=== PATIENT | female | born 1995 | race Caucasian/White ===

== ENCOUNTER 2021-10-20 07:34 | Inpatient (IN) ==
[2021-10-20] MEDS ORDERED: OXYTOCIN 30 UNITS/500 ML BAG IV PRN (08:26)
[2021-10-20 08:46] LABS: Hematocrit (blood only) 36.4 % (37-47); Hemoglobin 12.5 g/dL (12.0-16.0); Mean Corpuscular Hemoglobin 31.3 pg (25-34); Mean Corpuscular Hgb Conc 34.3 g/dL (32-36); Mean Corpuscular Volume 91.2 fL (80-100); Platelet Count 241 K/uL (130-400); RDW Coefficient of Variation 13.3 % (11.5-14.5); RDW Standard Deviation 44.9 fL (36.4-46.3); Red Blood Count 3.99 M/uL (4.2-5.4); White Blood Count 9.96 K/uL (4.8-10.8)
--- NOTE | 2021-10-20 08:55 | History & Physical Report ---
Date of Service October 20, 2021 Assessment & Plan (1) Post-dates : Plan: Monitor for labor probable Cervidil Admission and Anticipated Discharge Date Admission Date: October 20, 2021 History of Present Illness Chief Complaint: induction of labor Primary Care Provider: Nito Eubanks MD 26 F P0000 at 40.3 weeks admitted for IOL for post dates. GBS is negative. Covid is negative. Allergies Allergy/AdvReac Type Severity Reaction Status Date / Time No Known Allergies Allergy Verified 06/26/19 01:01 Patient History Medical History Anemia No chronic diseases present Ovarian cyst Surgical History No significant past surgical history Social History Smoking Status: Former smoker Second Hand Exposure: Yes (Patient reports occasional); Do You Dip or Chew Tobacco: No; Tobacco Cessation Education Requested by Patient: No Hx Alcohol Use: No Hx Substance Use: No Preferred Language: Chadian Communication Ability: Effective Clinical Care Coordinator Required: No Beliefs That Will Affect Care: None marital status: Current Living Situation: Spouse Other Information That Helps Us Care for You: No Feels Safe at Home: Yes Safety Concerns: Feels Safe At This Time Assistive Devices: None OB History 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 Review of Systems All systems reviewed & are unremarkable except as noted in HPI & below Physical Exam Constitutional: WD/WN, vitals as above comfortable Eyes: PERRL, conjunctivae normal, anicteric sclerae Neck: trachea midline, no thyromegaly Respiratory: normal respiratory effort, lungs clear to auscultation Skin: no rashes, warm and dry Neurologic: patellar DTR's 2+ bilat, sensation intact Psychiatric: A+Ox3, euthymic affect Genitourinary: Manual OB Exam: + cervical dilation fingertip, + cervical effacement 50% and + station high OB Exam Monitor Tracing: + external FHT monitor used, + external uterine monitor used, + category I and + normal FHT variability cervix posterior/moderate consistency Results & Data ([place]) Vital Signs (Past 12 Hours) Vital Signs Temp Pulse Resp BP 10/20/21 08:48 102 H 164/105 H 10/20/21 08:34 97 H 146/101 H 10/20/21 08:33 106 H 136/100 10/20/21 08:17 100 H 144/103 H 10/20/21 08:03 93 H 138/99 10/20/21 07:53 105 H 147/103 H 10/20/21 07:45 99 H 161/103 H 10/20/21 07:24 37.1 C 99 H 18 161/103 H Code Status & VTE Plan VTE Prophylaxis Plan VTE Prophylaxis will be ordered: No Monitoring External Monitor Cat 1
[2021-10-20 11:37] LABS: Albumin Globulin Ratio 0.9 (0.9-2); Albumin Level 3.1 gm/dl (3.4-5.0); BUN Creatinine Ratio 25.9 (10-20); Bilirubin,Total 0.5 mg/dl (0.2-1.0); Calcium 8.6 mg/dl (8.5-10.1); Creatinine Clr Calc Pharmacy 91.6 ml/min; Est GFR (African American) 115.4 ml/min; Est GFR (Non-African American) 99.5 ml/min; Globulin 3.5 gm/dl (2.5-4.0); Potassium 4.1 mmol/L (3.5-5.1); Total Protein 6.6 gm/dl (6.0-8.3); Uric Acid 5.1 mg/dl (2.6-7.2)
[2021-10-20] MEDS ORDERED: miSOPROStoL 50 MCG TAB PO SCH (12:00)
[2021-10-20 12:28] LABS: Creatinine Urine Random 45.1 mg/dl; Protein Creatinine Ratio Urine 0.2 (0-0.2); Total Protein Urine Random 9.7 mg/dl (0-11.9)
[2021-10-20] MEDS: LACTATED RINGER'S 1,000 ML IV PRN (13:57)
[2021-10-20] MEDS ORDERED: DINOPROSTONE 10 MG INSERT PV ONE (20:01)
--- NOTE | 2021-10-20 20:30 | Labor Progress Brief Note ---
Date of Service October 20, 2021 Assessment & Plan Admission and Anticipated Discharge Date Admission Date: October 20, 2021 Physical Exam Genitourinary: Manual OB Exam: + cervical dilation 1 cm, + cervical effacement 50% and + station high OB Exam Monitor Tracing: + external FHT monitor used, + external uterine monitor used, + category I and + normal FHT variability Cervidil 10 mg placed vaginally Results & Data ([facility]) Vital Signs (Past 12 Hours) Vital Signs Temp Pulse Resp BP 10/20/21 19:01 97 H 136/99 10/20/21 19:00 37.1 C 18 10/20/21 15:41 92 H 135/92 10/20/21 14:49 37.0 C 94 H 18 137/96 10/20/21 13:43 96 H 147/95 H 10/20/21 13:14 95 H 18 139/101 H 10/20/21 12:41 90 144/91 H 10/20/21 11:42 37.0 C 18 10/20/21 11:29 91 H 137/95 10/20/21 10:57 95 H 152/99 H 10/20/21 10:30 93 H 147/99 H 10/20/21 09:47 83 136/91 10/20/21 09:32 83 142/90 H 10/20/21 09:17 88 157/95 H 10/20/21 09:03 95 H 148/99 H 10/20/21 08:48 102 H 164/105 H 10/20/21 08:34 97 H 146/101 H 10/20/21 08:33 106 H 136/100
[2021-10-21] MEDS: BUTORPHANOL TARTRATE 1 MG/ML VIAL IV PRN ×3 (03:10→15:01)
[2021-10-21] MEDS ORDERED: OXYTOCIN 30 UNITS/500 ML BAG IV PRN ×2 (08:54→18:13)
--- NOTE | 2021-10-21 08:54 | Labor Progress Brief Note ---
Date of Service October 21, 2021 Assessment & Plan Admission and Anticipated Discharge Date Admission Date: October 20, 2021 Physical Exam Genitourinary: Manual OB Exam: + cervical dilation 1 cm, + cervical effacement 50% and + station high Cervidil pulled out will monitor and start Oxytocin in 1 hour Results & Data ([facility]) Vital Signs (Past 12 Hours) Vital Signs Temp Pulse Resp BP 10/21/21 07:37 36.7 C 98 H 18 135/86 10/21/21 06:30 85 141/86 H 10/21/21 03:03 86 139/94 10/21/21 03:02 37.1 C 18 10/20/21 22:26 37.1 C 18 10/20/21 22:25 83 132/87
[2021-10-21] MEDS: LACTATED RINGER'S 1,000 ML IV PRN ×4 (10:17→23:27)
[2021-10-21] MEDS ORDERED: SODIUM CHLORIDE 0.9% INJ 10 ML VIAL ONE ×2 (16:09→23:57)
[2021-10-21] MEDS ORDERED: ePHEDrine sulfate 50 MG/ML AMP ONE (16:09)
[2021-10-21] MEDS ORDERED: fentaNYL citrate 100 MCG/2 ML VIAL ONE ×2 (16:09→23:58)
[2021-10-21] MEDS ORDERED: BUPIVACAINE 0.25% 30 ML VIAL ONE ×2 (16:09→23:57)
[2021-10-21] MEDS ORDERED: fentaNYL 2MCG/ML ROPIVACAINE 1.25MG/ML 100 ML BAG EPI ONE (16:10)
[2021-10-21] MEDS ORDERED: diphenhydrAMINE 50 MG/ML VIAL IV PRN (16:21)
[2021-10-21] MEDS ORDERED: NALOXONE HCL 0.4 MG/1 ML VIAL/CARP IV PRN (16:21)
[2021-10-21] MEDS ORDERED: ePHEDrine sulfate 50 MG/ML AMP IV PRN (16:21)
[2021-10-21] MEDS ORDERED: NALBUPHINE HCL INJ 10 MG/ML AMP IV PRN (16:21)
[2021-10-21] MEDS ORDERED: NALOXONE HCL 1 MG in SODIUM CHLORIDE 0.9% 1000ML 1,000 ML IV PRN (16:21)
--- NOTE | 2021-10-21 16:21 | Anesthesiology Consultation ---
Date of Service October 21, 2021 Assessment & Plan (1) Encounter for pre-operative examination: Chart Review Chart Review: Acceptable Risk for Surgery and Patient NOT seen in Pre Admission Testing Consults Requested none History Height/Weight Height: 5 ft 2 in Weight: 63.957 kg Allergies Allergy/AdvReac Type Severity Reaction Status Date / Time No Known Allergies Allergy Verified 06/26/19 01:01 Medications Home Medications Medication Instructions Recorded Confirmed Last Taken folic acid 1 mg tablet 1 mg PO DAILY 10/20/21 10/20/21 1 Day Ago ~10/19/21 mecobalamin (vitamin B12) 1,000 1,000 mcg PO DAILY 10/20/21 10/20/21 1 Day Ago mcg chewable tablet (B12 Active) ~10/19/21 prenat.vits,byron,dcf-bfni-qoqus 1 tab PO DAILY 10/20/21 10/20/21 1 Day Ago ~10/19/21 Active Medications Generic Name Dose Route Start Last Admin Trade Name Freq PRN Reason Stop Dose Admin Butorphanol Tartrate 1 mg 10/20/21 20:46 10/21/21 15:01 Butorphanol Tartrate 1 Mg/Ml Vial IV 11/19/21 20:45 1 mg Q2HWA PRN Administration Pain Lactated Ringer's 1,000 mls @ 125 mls/hr 10/20/21 08:26 10/21/21 12:43 Lr IV 10/22/21 08:25 125 mls/hr .Q8H PRN Administration L&D Protocol Protocol Oxytocin 30 units in 500 mls @ 6 mls/hr 10/21/21 08:54 10/21/21 15:31 Pitocin IV 10/23/21 08:53 0.36 units/hr .Q24H PRN 6 mls/hr Labor Induction/Augmentation Titration Protocol 0.36 UNITS/HR Misoprostol 50 mcg 10/20/21 12:00 10/20/21 14:47 Misoprostol 50 Mcg Tab PO 11/19/21 11:59 50 mcg Q4 JUAN J Administration Past Medical History Medical History Anemia No chronic diseases present Ovarian cyst Past Family History Family History Grandfather (Maternal) Stroke Grandfather (Maternal) Hypertension Grandmother (Paternal) Lung cancer Past Surgical History Surgical History No significant past surgical history [place] teeth extracted Social History Smoking Status: Former smoker Do You Dip or Chew Tobacco: No Hx Alcohol Use: No Hx Substance Use: No Physical Exam Vital Signs Last Vital Signs Temp 98.6 F 10/21/21 14:54 Pulse 85 10/21/21 15:36 Resp 20 10/21/21 14:54 BP 154/88 H 10/21/21 15:36 Testing Laboratory Results 10/20/21 08:34 10/20/21 11:00
--- NOTE | 2021-10-21 19:20 | Labor Progress Brief Note ---
Date of Service October 21, 2021 Assessment & Plan Admission and Anticipated Discharge Date Admission Date: October 20, 2021 Physical Exam Genitourinary: Manual OB Exam: + cervical dilation 3 cm and 4 cm, + cervical effacement 90%, + station -1 and + amniotic fluid clear OB Exam Monitor Tracing: + external FHT monitor used, + external uterine monitor used, + category I and + normal FHT variability Results & Data ([facility]) Vital Signs (Past 12 Hours) Vital Signs Temp Pulse Resp BP Pulse Ox 10/21/21 19:09 99 H 97 10/21/21 19:04 92 H 97 10/21/21 19:00 96 H 159/92 H 10/21/21 18:59 96 H 98 10/21/21 18:54 84 96 10/21/21 18:49 89 96 10/21/21 18:44 85 148/85 H 96 10/21/21 18:39 93 H 97 10/21/21 18:34 88 96 10/21/21 18:30 91 H 148/90 H 10/21/21 18:29 84 96 10/21/21 18:24 89 96 10/21/21 18:19 82 96 10/21/21 18:14 85 95 10/21/21 18:13 85 144/82 H 10/21/21 18:09 82 96 10/21/21 18:04 85 96 10/21/21 17:59 80 18 141/79 H 97 10/21/21 17:54 86 97 10/21/21 17:49 95 H 97 10/21/21 17:44 86 150/85 H 96 10/21/21 17:39 77 96 10/21/21 17:34 93 H 97 10/21/21 17:29 80 158/89 H 97 10/21/21 17:24 95 H 97 10/21/21 17:19 81 95 10/21/21 17:14 80 96 10/21/21 17:13 83 156/88 H 10/21/21 17:09 86 95 10/21/21 17:08 81 158/86 H 10/21/21 17:04 89 96 10/21/21 17:03 78 151/83 H 10/21/21 16:59 93 H 97 10/21/21 16:58 89 158/90 H 10/21/21 16:54 96 H 97 10/21/21 16:52 88 156/89 H 10/21/21 16:50 36.8 C 91 H 20 157/91 H 10/21/21 16:49 94 H 97 10/21/21 16:48 93 H 166/97 H 10/21/21 16:46 96 H 161/93 H 10/21/21 16:45 100 H 178/95 H 10/21/21 16:44 100 H 99 10/21/21 16:39 100 H 98 10/21/21 16:34 103 H 98 10/21/21 16:29 94 H 96 10/21/21 15:36 85 154/88 H 10/21/21 15:04 89 147/96 H 10/21/21 14:54 37.0 C 96 H 20 156/95 H 10/21/21 14:21 94 H 157/94 H 10/21/21 13:03 95 H 169/91 H 10/21/21 12:55 36.7 C 99 H 158/104 H 10/21/21 12:54 106 H 166/108 H 10/21/21 12:02 83 20 139/92 10/21/21 10:46 36.7 C 98 H 20 139/95 10/21/21 07:37 36.7 C 98 H 18 135/86
[2021-10-21] MEDS ORDERED: LABETALOL HCL IV 5 MG/ML 20ML IV STA ×2 (19:21→19:55)
--- NOTE | 2021-10-21 21:32 | Labor Progress Brief Note ---
Date of Service October 21, 2021 Assessment & Plan Admission and Anticipated Discharge Date Admission Date: October 20, 2021 Physical Exam Genitourinary: Manual OB Exam: + cervical dilation 5 cm, + cervical effacement 90% and + station -1 OB Exam Monitor Tracing: + external FHT monitor used, + external uterine monitor used, + category I and + normal FHT variability Results & Data ([facility]) Vital Signs (Past 12 Hours) Vital Signs Temp Pulse Resp BP Pulse Ox 10/21/21 21:29 83 95 10/21/21 21:24 98 H 138/81 97 10/21/21 21:23 103 H 139/101 H 10/21/21 21:19 83 95 10/21/21 21:14 85 96 10/21/21 21:13 85 149/85 H 10/21/21 21:09 82 96 10/21/21 21:04 102 H 97 10/21/21 21:03 85 145/88 H 10/21/21 21:00 37.6 C H 18 10/21/21 20:59 93 H 96 10/21/21 20:54 102 H 153/91 H 97 10/21/21 20:49 102 H 97 10/21/21 20:44 93 H 96 10/21/21 20:43 92 H 144/80 H 10/21/21 20:39 96 H 96 10/21/21 20:34 94 H 136/79 96 10/21/21 20:30 16 10/21/21 20:29 98 H 96 10/21/21 20:24 96 H 96 10/21/21 20:23 92 H 133/78 10/21/21 20:19 95 H 96 10/21/21 20:14 95 H 95 10/21/21 20:11 93 H 136/82 10/21/21 20:09 97 H 135/86 96 10/21/21 20:07 95 H 142/91 H 10/21/21 20:05 103 H 147/95 H 10/21/21 20:04 98 H 97 10/21/21 20:03 96 H 156/89 H 10/21/21 20:00 20 10/21/21 19:59 86 161/94 H 97 10/21/21 19:57 90 161/100 H 10/21/21 19:55 91 H 161/98 H 10/21/21 19:54 86 98 10/21/21 19:53 86 169/105 H 10/21/21 19:51 85 161/99 H 10/21/21 19:49 98 H 159/102 H 97 10/21/21 19:47 87 157/97 H 10/21/21 19:45 93 H 156/92 H 10/21/21 19:44 103 H 97 10/21/21 19:43 88 155/96 H 10/21/21 19:41 83 159/97 H 10/21/21 19:39 89 157/98 H 97 10/21/21 19:37 96 H 164/96 H 10/21/21 19:35 96 H 154/97 H 10/21/21 19:34 89 97 10/21/21 19:30 94 H 18 169/100 H 10/21/21 19:29 90 97 10/21/21 19:24 90 97 10/21/21 19:19 82 97 10/21/21 19:14 97 H 97 10/21/21 19:13 93 H 157/105 H 10/21/21 19:09 99 H 97 10/21/21 19:04 92 H 97 10/21/21 19:01 37.2 C 18 10/21/21 19:00 96 H 159/92 H 10/21/21 18:59 96 H 98 10/21/21 18:54 84 96 10/21/21 18:49 89 96 10/21/21 18:44 85 148/85 H 96 10/21/21 18:39 93 H 97 10/21/21 18:34 88 96 10/21/21 18:30 91 H 148/90 H 10/21/21 18:29 84 96 10/21/21 18:24 89 96 10/21/21 18:19 82 96 10/21/21 18:14 85 95 10/21/21 18:13 85 144/82 H 10/21/21 18:09 82 96 10/21/21 18:04 85 96 10/21/21 17:59 80 18 141/79 H 97 10/21/21 17:54 86 97 10/21/21 17:49 95 H 97 10/21/21 17:44 86 150/85 H 96 10/21/21 17:39 77 96 10/21/21 17:34 93 H 97 10/21/21 17:29 80 158/89 H 97 10/21/21 17:24 95 H 97 10/21/21 17:19 81 95 10/21/21 17:14 80 96 10/21/21 17:13 83 156/88 H 10/21/21 17:09 86 95 10/21/21 17:08 81 158/86 H 10/21/21 17:04 89 96 10/21/21 17:03 78 151/83 H 10/21/21 16:59 93 H 97 10/21/21 16:58 89 158/90 H 10/21/21 16:54 96 H 97 10/21/21 16:52 88 156/89 H 10/21/21 16:50 36.8 C 91 H 20 157/91 H 10/21/21 16:49 94 H 97 10/21/21 16:48 93 H 166/97 H 10/21/21 16:46 96 H 161/93 H 10/21/21 16:45 100 H 178/95 H 10/21/21 16:44 100 H 99 10/21/21 16:39 100 H 98 10/21/21 16:34 103 H 98 10/21/21 16:29 94 H 96 10/21/21 15:36 85 154/88 H 10/21/21 15:04 89 147/96 H 10/21/21 14:54 37.0 C 96 H 20 156/95 H 10/21/21 14:21 94 H 157/94 H 10/21/21 13:03 95 H 169/91 H 10/21/21 12:55 36.7 C 99 H 158/104 H 10/21/21 12:54 106 H 166/108 H 10/21/21 12:02 83 20 139/92 10/21/21 10:46 36.7 C 98 H 20 139/95
[2021-10-21] MEDS ORDERED: ACETAMINOPHEN 500 MG TAB PO STA (23:12)
[2021-10-21] MEDS: fentaNYL 2MCG/ML ROPIVACAINE 1.25MG/ML 100 ML BAG EPI PRN (23:51)
[2021-10-22] MEDS: LACTATED RINGER'S 1,000 ML IV PRN ×2 (02:48→07:14)
[2021-10-22] MEDS: fentaNYL 2MCG/ML ROPIVACAINE 1.25MG/ML 100 ML BAG EPI PRN (04:35)
[2021-10-22] MEDS ORDERED: CITRIC ACID/SODIUM CITRATE 15 ML UDC PO SCH (06:00)
[2021-10-22] MEDS ORDERED: ceFAZolin 2000MG 2,000 MG/15 ML SYR IV SCH (06:00)
--- NOTE | 2021-10-22 09:18 | Labor Progress Brief Note ---
Date of Service October 22, 2021 Assessment & Plan (1) Post-dates : Plan: Post dates induction day #3 SVE; 8/100/-1 X4hrs Pit 20 Mu Ctx 1-4mins EFW by josiah 9lbs 3+ edema on both extremities and labia significantly edematous discussed c/sec with pt Pt and spouse agree risk and benefits of c/sec discussed with pt and spouse consent obtained will proceed to c/sec Admission and Anticipated Discharge Date Admission Date: October 20, 2021 Results & Data ([facility]) Vital Signs (Past 12 Hours) Vital Signs Temp Pulse Resp BP Pulse Ox 10/22/21 09:13 129 H 127/83 10/22/21 09:11 125 H 131/86 10/22/21 09:09 139 H 134/85 99 10/22/21 09:07 115 H 134/86 10/22/21 09:05 110 H 132/83 10/22/21 09:04 128 H 97 10/22/21 09:03 134 H 108/74 10/22/21 09:01 116 H 113/70 10/22/21 09:00 37.1 C 18 10/22/21 08:59 136 H 115/71 97 10/22/21 08:57 114 H 113/69 10/22/21 08:55 113 H 111/71 10/22/21 08:54 107 H 97 10/22/21 08:53 92 H 112/67 10/22/21 08:51 115 H 112/70 10/22/21 08:49 100 H 112/68 97 10/22/21 08:47 102 H 113/67 10/22/21 08:45 102 H 119/71 10/22/21 08:44 104 H 97 10/22/21 08:43 92 H 117/70 10/22/21 08:41 110 H 114/70 10/22/21 08:39 109 H 115/71 97 10/22/21 08:37 104 H 124/76 10/22/21 08:35 116 H 122/74 10/22/21 08:34 111 H 98 10/22/21 08:33 115 H 117/72 10/22/21 08:31 109 H 18 129/78 10/22/21 08:29 132 H 135/86 98 10/22/21 08:27 93 H 136/85 10/22/21 08:25 109 H 133/86 10/22/21 08:24 113 H 98 10/22/21 08:23 114 H 128/79 10/22/21 08:21 108 H 119/63 10/22/21 08:19 101 H 138/88 98 10/22/21 08:17 96 H 141/88 H 10/22/21 08:15 106 H 153/97 H 10/22/21 08:14 118 H 99 10/22/21 08:09 93 H 97 10/22/21 08:08 93 H 123/75 10/22/21 08:04 93 H 97 10/22/21 08:01 18 10/22/21 07:59 93 H 98 10/22/21 07:54 97 H 140/84 98 10/22/21 07:49 109 H 98 10/22/21 07:44 106 H 97 10/22/21 07:39 96 H 98 10/22/21 07:37 100 H 148/88 H 10/22/21 07:34 103 H 98 10/22/21 07:31 18 10/22/21 07:29 107 H 97 10/22/21 07:24 101 H 98 10/22/21 07:19 101 H 97 10/22/21 07:14 96 H 98 10/22/21 07:10 37.4 C 18 10/22/21 07:09 101 H 98 10/22/21 07:07 102 H 157/94 H 10/22/21 07:04 100 H 99 10/22/21 07:00 18 10/22/21 06:59 100 H 95 10/22/21 06:54 96 H 99 10/22/21 06:52 95 H 149/88 H 10/22/21 06:49 98 H 96 10/22/21 06:44 100 H 96 10/22/21 06:39 80 94 10/22/21 06:37 82 129/82 10/22/21 06:34 83 93 10/22/21 06:30 16 10/22/21 06:29 83 94 10/22/21 06:24 84 94 10/22/21 06:23 81 128/80 10/22/21 06:19 83 95 10/22/21 06:14 85 96 10/22/21 06:09 98 H 96 10/22/21 06:08 80 156/86 H 10/22/21 06:04 82 96 10/22/21 06:00 18 10/22/21 05:59 89 97 10/22/21 05:54 108 H 153/79 H 98 10/22/21 05:49 112 H 98 10/22/21 05:45 37.2 C 10/22/21 05:44 105 H 99 10/22/21 05:39 101 H 95 10/22/21 05:38 93 H 132/73 10/22/21 05:34 97 H 95 10/22/21 05:30 16 10/22/21 05:29 92 H 96 10/22/21 05:24 100 H 96 10/22/21 05:22 96 H 124/78 10/22/21 05:19 98 H 96 10/22/21 05:14 98 H 96 10/22/21 05:09 97 H 96 10/22/21 05:07 99 H 115/75 10/22/21 05:04 93 H 96 10/22/21 05:00 18 10/22/21 04:59 96 H 96 10/22/21 04:54 90 96 10/22/21 04:52 91 H 135/80 10/22/21 04:49 95 H 96 10/22/21 04:44 91 H 97 10/22/21 04:39 104 H 97 10/22/21 04:37 95 H 140/84 10/22/21 04:34 92 H 98 10/22/21 04:31 99 H 149/88 H 10/22/21 04:30 20 10/22/21 04:29 107 H 97 10/22/21 04:24 112 H 96 10/22/21 04:22 115 H 155/103 H 10/22/21 04:19 123 H 96 10/22/21 04:14 104 H 97 10/22/21 04:09 89 95 10/22/21 04:07 102 H 139/86 10/22/21 04:04 97 H 97 10/22/21 04:00 16 10/22/21 03:59 90 93 10/22/21 03:54 91 H 93 10/22/21 03:52 90 127/75 10/22/21 03:49 89 93 02/05/22 03:44 87 93 10/22/21 03:39 87 94 10/22/21 03:38 85 110/70 10/22/21 03:34 87 95 10/22/21 03:30 18 10/22/21 03:29 87 96 10/22/21 03:24 86 96 10/22/21 03:21 86 134/82 10/22/21 03:20 37.2 C 10/22/21 03:19 95 H 96 10/22/21 03:14 102 H 97 10/22/21 03:12 100 H 137/91 10/22/21 03:09 103 H 97 10/22/21 03:04 97 H 97 10/22/21 03:02 100 H 130/81 10/22/21 03:00 16 10/22/21 02:59 109 H 97 10/22/21 02:54 92 H 94 10/22/21 02:51 99 H 128/75 10/22/21 02:49 99 H 94 10/22/21 02:44 97 H 93 10/22/21 02:41 93 H 112/70 10/22/21 02:39 100 H 94 10/22/21 02:34 100 H 94 10/22/21 02:30 92 H 16 122/68 10/22/21 02:29 97 H 94 10/22/21 02:24 99 H 94 10/22/21 02:20 94 H 119/70 10/22/21 02:19 100 H 94 10/22/21 02:14 89 94 10/22/21 02:12 93 H 120/74 10/22/21 02:09 94 H 95 10/22/21 02:05 102 H 94 10/22/21 02:04 96 H 95 10/22/21 02:00 97 H 16 119/67 10/22/21 01:59 102 H 94 10/22/21 01:54 95 H 94 10/22/21 01:52 103 H 94 10/22/21 01:50 94 H 116/67 10/22/21 01:49 98 H 95 10/22/21 01:45 98 H 94 10/22/21 01:44 98 H 95 10/22/21 01:40 101 H 126/73 10/22/21 01:39 97 H 95 02/05/22 01:34 96 H 96 10/22/21 01:31 91 H 127/74 10/22/21 01:30 16 10/22/21 01:29 98 H 96 10/22/21 01:24 109 H 97 10/22/21 01:21 105 H 137/78 10/22/21 01:20 37.6 C H 10/22/21 01:19 103 H 98 10/22/21 01:14 102 H 97 10/22/21 01:10 87 142/83 H 10/22/21 01:09 85 97 10/22/21 01:07 87 94 10/22/21 01:04 86 95 10/22/21 01:02 81 136/81 10/22/21 01:00 16 10/22/21 00:59 91 H 95 10/22/21 00:54 107 H 97 10/22/21 00:52 83 143/77 H 10/22/21 00:49 105 H 94 10/22/21 00:44 94 H 95 10/22/21 00:40 84 135/76 10/22/21 00:39 90 95 10/22/21 00:34 87 95 10/22/21 00:30 90 16 130/70 10/22/21 00:29 88 95 10/22/21 00:28 89 94 10/22/21 00:24 86 95 10/22/21 00:19 83 136/75 95 10/22/21 00:17 80 129/71 10/22/21 00:15 80 132/83 10/22/21 00:14 83 95 10/22/21 00:13 86 142/80 H 10/22/21 00:11 90 130/76 10/22/21 00:09 88 129/77 97 10/22/21 00:07 94 H 142/77 H 10/22/21 00:05 37.6 C H 96 H 139/76 10/22/21 00:04 95 H 97 10/22/21 00:02 92 H 137/85 10/22/21 00:01 97 H 160/94 H 10/22/21 00:00 18 10/21/21 23:59 104 H 96 10/21/21 23:54 96 H 97 10/21/21 23:51 94 H 155/91 H 02/22 23:49 106 H 98 10/21/21 23:44 93 H 98 10/21/21 23:41 93 H 151/87 H 10/21/21 23:39 100 H 98 10/21/21 23:34 100 H 97 10/21/21 23:30 20 10/21/21 23:29 91 H 137/77 97 10/21/21 23:24 92 H 97 10/21/21 23:20 93 H 133/84 10/21/21 23:19 96 H 97 10/21/21 23:14 101 H 97 10/21/21 23:10 100 H 154/94 H 10/21/21 23:09 109 H 97 10/21/21 23:07 38.0 C H 10/21/21 23:04 102 H 97 10/21/21 23:00 18 10/21/21 22:59 98 H 134/89 97 10/21/21 22:54 94 H 97 10/21/21 22:51 105 H 143/88 H 10/21/21 22:49 111 H 97 10/21/21 22:44 103 H 98 10/21/21 22:39 107 H 129/83 98 10/21/21 22:34 110 H 98 10/21/21 22:30 111 H 20 135/86 10/21/21 22:29 116 H 97 10/21/21 22:24 115 H 97 10/21/21 22:19 105 H 150/80 H 98 10/21/21 22:14 84 97 10/21/21 22:09 87 97 10/21/21 22:04 97 H 98 10/21/21 22:03 85 134/74 10/21/21 22:00 16 10/21/21 21:59 96 H 97 10/21/21 21:57 101 H 93 10/21/21 21:54 93 H 132/75 95 10/21/21 21:49 87 95 10/21/21 21:47 89 94 10/21/21 21:44 89 95 10/21/21 21:43 87 133/72 10/21/21 21:39 87 95 10/21/21 21:34 84 126/72 95 10/21/21 21:30 18 10/21/21 21:29 83 95 10/21/21 21:24 98 H 138/81 97 10/21/21 21:23 103 H 139/101 H 10/21/21 21:19 83 95
[2021-10-22] MEDS ORDERED: LACTATED RINGER'S 1,000 ML IV SCH ×3 (09:45→12:00)
[2021-10-22] MEDS ORDERED: NALOXONE HCL 0.4 MG/1 ML VIAL/CARP IV PRN (11:20)
[2021-10-22] MEDS ORDERED: MoRPHine SULFATE PF 1 MG/ML 10 ML AMP/VIAL EPI ONE (11:20)
[2021-10-22] MEDS ORDERED: diphenhydrAMINE 50 MG/ML VIAL IV PRN (11:20)
[2021-10-22] MEDS ORDERED: ONDANSETRON INJ 2 MG/ML 2 ML VIAL IV PRN ×2 (11:20→11:46)
[2021-10-22] MEDS ORDERED: PROMETHAZINE HCL 12.5 MG in SODIUM CHLORIDE 0.9% 50 ML IV PRN (11:20)
[2021-10-22] MEDS ORDERED: LACTATED RINGER'S 500 ML IV PRN (11:20)
[2021-10-22] MEDS ORDERED: MoRPHine SULFATE 2 MG/ML CARP IV PRN (11:20)
[2021-10-22] MEDS ORDERED: NALBUPHINE HCL INJ 10 MG/ML AMP IV PRN (11:20)
[2021-10-22] MEDS ORDERED: ePHEDrine sulfate 50 MG/ML AMP IV PRN (11:20)
[2021-10-22] MEDS ORDERED: NALOXONE HCL 0.08 MG in SYRINGE 1.8 ML IV PRN (11:20)
[2021-10-22] MEDS ORDERED: NALOXONE HCL 1 MG in SODIUM CHLORIDE 0.9% 1000ML 1,000 ML IV PRN (11:20)
[2021-10-22 11:22] LABS: Base Excess Cord Arterial Bld -3.4 mEq/L (-9-1.8); CO2 Cord Arterial Blood 56 mmHg (39.1-73.5); HCO3 Cord Arterial Blood 25 mmol/L (19.7-28.5); PO2 Cord Arterial Blood 18 mmHg (4.1-31.7); pH Cord Arterial Blood 7.26 (7.1-7.38)
[2021-10-22 11:25] LABS: Base Excess Cord Venous Blood -2.8 mEq/L (-7.7-1.9); Cord Venous Blood HCO3 23 mmol/L (18.4-26.8); Cord Venous Blood PCO2 44 mmHg (30.4-57.2); Cord Venous Blood PO2 30 mmHg (14.1-43.3); Cord Venous Blood pH 7.34 (7.20-7.44); Oxygen Sat Cord Arterial Blood < 60.0 % (<60)
[2021-10-22] MEDS ORDERED: NO NARCOTICS OR SEDATIVES SCH (11:30)
[2021-10-22] MEDS ORDERED: DC INTRASPINAL MORPHINE SCH (11:30)
[2021-10-22] MEDS ORDERED: SODIUM CHLORIDE 0.9% 1000ML 1,000 ML IV SCH (11:30)
[2021-10-22] MEDS ORDERED: OXYTOCIN 10 UNITS/ML 10ML VIAL IM ONE (11:33)
[2021-10-22] MEDS ORDERED: miSOPROStoL 200 MCG TAB ONE (11:36)
--- NOTE | 2021-10-22 11:41 | Anesthesia Procedure Note ---
Date of Service October 22, 2021 Anesthesia Post Epidural Note Vital Signs Vital Signs: Temp Pulse Resp BP Pulse Ox 37.1 C 98 H 18 147/88 H 97 10/22/21 09:00 10/22/21 10:14 10/22/21 10:01 10/22/21 10:14 10/22/21 10:14 Pain Intensity Lower Abdomen: Pain Intensity: 7 Notes Mental Status: alert / awake / arousable and participated in evaluation Nausea / Vomiting: adequately controlled Pain: adequately controlled Airway Patency, RR, SpO2: stable & adequate BP & HR: stable & adequate Hydration State: stable & adequate Neuraxial Anesthesia: was administered and sensory block is resolving Anesthetic Complications: no major complications apparent Epidural: Removed without complications and With tip intact
[2021-10-22] MEDS ORDERED: MAGNESIUM HYDROXIDE SUSP 30 ML UDC PO PRN (11:46)
[2021-10-22] MEDS ORDERED: BENZOCAINE 20% AER SPR 82.5 GM CAN EXT PRN (11:46)
[2021-10-22] MEDS ORDERED: HYDROCORTISONE ACETATE 25 MG SUPP PR PRN (11:46)
[2021-10-22] MEDS ORDERED: SUPERCREAM 0.870% 15 GM JAR EXT PRN (11:46)
[2021-10-22] MEDS ORDERED: DIPHTHERIA/TETANUS/PERTUSSIS 0.5 ML SYR/VIAL IM ONE (11:46)
[2021-10-22] MEDS ORDERED: SENNA 8.6 MG TAB PO PRN (11:46)
--- NOTE | 2021-10-22 11:50 | Post Operative Brief Note ---
Immediate Post Op Note v1 Date of Surgery October 22, 2021 Pre & Post Diagnosis Operation Date: 10/22/21 10:30 Pre-Op Diagnosis: Arrest of dilation Post-Op Diagnosis: Arrest of dilation I identified the patient and participated in the time-out.: Yes Procedure Operation Date: 10/22/21 10:30 Actual Procedures p Section in LD live female child at 1053 in OR 3 - Spencer Aguillon MD Surgeon Spencer Aguillon MD Sales And Service Associate dr mansfield Estimated Blood Loss 600 Findings Consistent with Post-Op Diagnosis Drains Pablo Catheter
[2021-10-22] MEDS ORDERED: miSOPROStoL 200 MCG TAB PR ONE (11:53)
[2021-10-22] MEDS: KETOROLAC 30 MG/ML VIAL IV PRN ×2 (11:56→23:32)
[2021-10-22] MEDS: LABETALOL HCL 100 MG TAB PO SCH ×2 (13:38→20:19)
--- NOTE | 2021-10-22 13:41 | Anesthesiology Progress Note ---
Date of Service October 22, 2021 Anesthesia Post Procedure Vital Signs Vital Signs: Temp Pulse Resp BP Pulse Ox 10/22/21 13:40 93 H 164/98 H 10/22/21 13:38 100 H 98 10/22/21 13:33 108 H 96 10/22/21 13:31 96 H 167/97 H 10/22/21 13:30 106 H 172/103 H 10/22/21 13:28 86 96 10/22/21 13:23 116 H 95 10/22/21 13:20 94 H 163/88 H 10/22/21 13:18 96 H 97 10/22/21 13:13 105 H 98 10/22/21 13:10 106 H 173/88 H 10/22/21 13:08 99 H 97 10/22/21 13:03 105 H 97 10/22/21 13:02 101 H 169/93 H 10/22/21 13:00 103 H 169/94 H 10/22/21 12:58 110 H 97 10/22/21 12:53 110 H 97 10/22/21 12:50 100 H 167/92 H 10/22/21 12:48 114 H 97 10/22/21 12:47 18 10/22/21 12:43 107 H 97 10/22/21 12:40 104 H 180/88 H 10/22/21 12:38 117 H 96 10/22/21 12:37 18 10/22/21 12:33 93 H 97 10/22/21 12:30 100 H 171/90 H 10/22/21 12:28 93 H 97 10/22/21 12:27 18 10/22/21 12:23 95 H 98 10/22/21 12:20 104 H 167/91 H 10/22/21 12:18 112 H 98 10/22/21 12:17 18 10/22/21 12:13 110 H 99 10/22/21 12:10 110 H 147/101 H 10/22/21 12:08 118 H 99 10/22/21 12:07 18 10/22/21 12:03 119 H 99 10/22/21 12:00 106 H 139/98 10/22/21 11:58 117 H 98 10/22/21 11:57 18 10/22/21 11:53 115 H 98 10/22/21 11:49 112 H 136/97 10/22/21 11:47 37.3 C 18 10/22/21 10:14 98 H 147/88 H 97 10/22/21 10:11 98 H 157/86 H 10/22/21 10:09 104 H 98 10/22/21 10:05 100 H 156/84 H 10/22/21 10:04 97 H 98 10/22/21 10:01 18 10/22/21 10:00 103 H 128/90 10/22/21 09:59 100 H 98 10/22/21 09:54 96 H 134/85 98 10/22/21 09:49 106 H 98 10/22/21 09:47 101 H 133/89 10/22/21 09:45 100 H 138/90 10/22/21 09:44 102 H 98 10/22/21 09:43 102 H 139/90 10/22/21 09:41 106 H 121/83 10/22/21 09:39 99 H 134/87 98 10/22/21 09:37 94 H 129/78 10/22/21 09:35 105 H 128/75 10/22/21 09:34 98 H 98 10/22/21 09:33 102 H 139/86 10/22/21 09:31 107 H 18 140/84 10/22/21 09:29 104 H 134/83 98 10/22/21 09:27 110 H 130/86 10/22/21 09:25 117 H 131/89 10/22/21 09:24 124 H 98 10/22/21 09:23 133 H 119/62 10/22/21 09:21 125 H 138/87 10/22/21 09:19 114 H 99 10/22/21 09:17 130 H 118/77 10/22/21 09:15 126 H 121/80 10/22/21 09:14 128 H 98 10/22/21 09:13 129 H 127/83 10/22/21 09:11 125 H 131/86 10/22/21 09:09 139 H 134/85 99 10/22/21 09:07 115 H 134/86 10/22/21 09:05 110 H 132/83 10/22/21 09:04 128 H 97 10/22/21 09:03 134 H 108/74 10/22/21 09:01 116 H 113/70 10/22/21 09:00 37.1 C 18 10/22/21 08:59 136 H 115/71 97 10/22/21 08:57 114 H 113/69 10/22/21 08:55 113 H 111/71 10/22/21 08:54 107 H 97 10/22/21 08:53 92 H 112/67 10/22/21 08:51 115 H 112/70 10/22/21 08:49 100 H 112/68 97 10/22/21 08:47 102 H 113/67 10/22/21 08:45 102 H 119/71 10/22/21 08:44 104 H 97 10/22/21 08:43 92 H 117/70 10/22/21 08:41 110 H 114/70 10/22/21 08:39 109 H 115/71 97 10/22/21 08:37 104 H 124/76 10/22/21 08:35 116 H 122/74 10/22/21 08:34 111 H 98 10/22/21 08:33 115 H 117/72 10/22/21 08:31 109 H 18 129/78 10/22/21 08:29 132 H 135/86 98 10/22/21 08:27 93 H 136/85 10/22/21 08:25 109 H 133/86 10/22/21 08:24 113 H 98 10/22/21 08:23 114 H 128/79 10/22/21 08:21 108 H 119/63 10/22/21 08:19 101 H 138/88 98 10/22/21 08:17 96 H 141/88 H 10/22/21 08:15 106 H 153/97 H 10/22/21 08:14 118 H 99 10/22/21 08:09 93 H 97 10/22/21 08:08 93 H 123/75 10/22/21 08:04 93 H 97 10/22/21 08:01 18 10/22/21 07:59 93 H 98 10/22/21 07:54 97 H 140/84 98 10/22/21 07:49 109 H 98 10/22/21 07:44 106 H 97 10/22/21 07:39 96 H 98 10/22/21 07:37 100 H 148/88 H 02/05/22 07:34 103 H 98 10/22/21 07:31 18 10/22/21 07:29 107 H 97 10/22/21 07:24 101 H 98 10/22/21 07:19 101 H 97 10/22/21 07:14 96 H 98 10/22/21 07:10 37.4 C 18 10/22/21 07:09 101 H 98 10/22/21 07:07 102 H 157/94 H 10/22/21 07:04 100 H 99 10/22/21 07:00 18 10/22/21 06:59 100 H 95 10/22/21 06:54 96 H 99 10/22/21 06:52 95 H 149/88 H 10/22/21 06:49 98 H 96 10/22/21 06:44 100 H 96 10/22/21 06:39 80 94 10/22/21 06:37 82 129/82 10/22/21 06:34 83 93 10/22/21 06:30 16 10/22/21 06:29 83 94 10/22/21 06:24 84 94 10/22/21 06:23 81 128/80 10/22/21 06:19 83 95 10/22/21 06:14 85 96 10/22/21 06:09 98 H 96 10/22/21 06:08 80 156/86 H 10/22/21 06:04 82 96 10/22/21 06:00 18 10/22/21 05:59 89 97 10/22/21 05:54 108 H 153/79 H 98 10/22/21 05:49 112 H 98 10/22/21 05:45 37.2 C 10/22/21 05:44 105 H 99 10/22/21 05:39 101 H 95 10/22/21 05:38 93 H 132/73 10/22/21 05:34 97 H 95 10/22/21 05:30 16 10/22/21 05:29 92 H 96 10/22/21 05:24 100 H 96 10/22/21 05:22 96 H 124/78 10/22/21 05:19 98 H 96 10/22/21 05:14 98 H 96 10/22/21 05:09 97 H 96 10/22/21 05:07 99 H 115/75 02/05/22 05:04 93 H 96 10/22/21 05:00 18 10/22/21 04:59 96 H 96 10/22/21 04:54 90 96 10/22/21 04:52 91 H 135/80 10/22/21 04:49 95 H 96 10/22/21 04:44 91 H 97 10/22/21 04:39 104 H 97 10/22/21 04:37 95 H 140/84 10/22/21 04:34 92 H 98 10/22/21 04:31 99 H 149/88 H 10/22/21 04:30 20 10/22/21 04:29 107 H 97 10/22/21 04:24 112 H 96 10/22/21 04:22 115 H 155/103 H 10/22/21 04:19 123 H 96 10/22/21 04:14 104 H 97 10/22/21 04:09 89 95 10/22/21 04:07 102 H 139/86 10/22/21 04:04 97 H 97 10/22/21 04:00 16 10/22/21 03:59 90 93 10/22/21 03:54 91 H 93 10/22/21 03:52 90 127/75 10/22/21 03:49 89 93 10/22/21 03:44 87 93 10/22/21 03:39 87 94 10/22/21 03:38 85 110/70 10/22/21 03:34 87 95 10/22/21 03:30 18 10/22/21 03:29 87 96 10/22/21 03:24 86 96 10/22/21 03:21 86 134/82 10/22/21 03:20 37.2 C 10/22/21 03:19 95 H 96 10/22/21 03:14 102 H 97 10/22/21 03:12 100 H 137/91 10/22/21 03:09 103 H 97 10/22/21 03:04 97 H 97 10/22/21 03:02 100 H 130/81 10/22/21 03:00 16 10/22/21 02:59 109 H 97 10/22/21 02:54 92 H 94 10/22/21 02:51 99 H 128/75 10/22/21 02:49 99 H 94 10/22/21 02:44 97 H 93 10/22/21 02:41 93 H 112/70 10/22/21 02:39 100 H 94 10/22/21 02:34 100 H 94 10/22/21 02:30 92 H 16 122/68 10/22/21 02:29 97 H 94 10/22/21 02:24 99 H 94 10/22/21 02:20 94 H 119/70 10/22/21 02:19 100 H 94 10/22/21 02:14 89 94 10/22/21 02:12 93 H 120/74 10/22/21 02:09 94 H 95 10/22/21 02:05 102 H 94 10/22/21 02:04 96 H 95 10/22/21 02:00 97 H 16 119/67 10/22/21 01:59 102 H 94 10/22/21 01:54 95 H 94 10/22/21 01:52 103 H 94 10/22/21 01:50 94 H 116/67 10/22/21 01:49 98 H 95 10/22/21 01:45 98 H 94 10/22/21 01:44 98 H 95 10/22/21 01:40 101 H 126/73 10/22/21 01:39 97 H 95 10/22/21 01:34 96 H 96 10/22/21 01:31 91 H 127/74 10/22/21 01:30 16 10/22/21 01:29 98 H 96 10/22/21 01:24 109 H 97 10/22/21 01:21 105 H 137/78 10/22/21 01:20 37.6 C H 10/22/21 01:19 103 H 98 10/22/21 01:14 102 H 97 10/22/21 01:10 87 142/83 H 10/22/21 01:09 85 97 10/22/21 01:07 87 94 10/22/21 01:04 86 95 10/22/21 01:02 81 136/81 10/22/21 01:00 16 10/22/21 00:59 91 H 95 10/22/21 00:54 107 H 97 10/22/21 00:52 83 143/77 H 10/22/21 00:49 105 H 94 10/22/21 00:44 94 H 95 02/05/22 00:40 84 135/76 10/22/21 00:39 90 95 10/22/21 00:34 87 95 10/22/21 00:30 90 16 130/70 10/22/21 00:29 88 95 10/22/21 00:28 89 94 10/22/21 00:24 86 95 10/22/21 00:19 83 136/75 95 10/22/21 00:17 80 129/71 10/22/21 00:15 80 132/83 10/22/21 00:14 83 95 10/22/21 00:13 86 142/80 H 10/22/21 00:11 90 130/76 10/22/21 00:09 88 129/77 97 10/22/21 00:07 94 H 142/77 H 10/22/21 00:05 37.6 C H 96 H 139/76 10/22/21 00:04 95 H 97 10/22/21 00:02 92 H 137/85 10/22/21 00:01 97 H 160/94 H 10/22/21 00:00 18 10/21/21 23:59 104 H 96 10/21/21 23:54 96 H 97 10/21/21 23:51 94 H 155/91 H 10/21/21 23:49 106 H 98 10/21/21 23:44 93 H 98 10/21/21 23:41 93 H 151/87 H 10/21/21 23:39 100 H 98 10/21/21 23:34 100 H 97 10/21/21 23:30 20 10/21/21 23:29 91 H 137/77 97 10/21/21 23:24 92 H 97 10/21/21 23:20 93 H 133/84 10/21/21 23:19 96 H 97 10/21/21 23:14 101 H 97 10/21/21 23:10 100 H 154/94 H 10/21/21 23:09 109 H 97 10/21/21 23:07 38.0 C H 10/21/21 23:04 102 H 97 10/21/21 23:00 18 10/21/21 22:59 98 H 134/89 97 10/21/21 22:54 94 H 97 10/21/21 22:51 105 H 143/88 H 0204/22 22:49 111 H 97 10/21/21 22:44 103 H 98 10/21/21 22:39 107 H 129/83 98 10/21/21 22:34 110 H 98 10/21/21 22:30 111 H 20 135/86 10/21/21 22:29 116 H 97 10/21/21 22:24 115 H 97 10/21/21 22:19 105 H 150/80 H 98 10/21/21 22:14 84 97 10/21/21 22:09 87 97 10/21/21 22:04 97 H 98 10/21/21 22:03 85 134/74 10/21/21 22:00 16 10/21/21 21:59 96 H 97 10/21/21 21:57 101 H 93 10/21/21 21:54 93 H 132/75 95 10/21/21 21:49 87 95 10/21/21 21:47 89 94 10/21/21 21:44 89 95 10/21/21 21:43 87 133/72 10/21/21 21:39 87 95 10/21/21 21:34 84 126/72 95 10/21/21 21:30 18 10/21/21 21:29 83 95 10/21/21 21:24 98 H 138/81 97 10/21/21 21:23 103 H 139/101 H 10/21/21 21:19 83 95 10/21/21 21:14 85 96 10/21/21 21:13 85 149/85 H 10/21/21 21:09 82 96 10/21/21 21:04 102 H 97 10/21/21 21:03 85 145/88 H 10/21/21 21:00 37.6 C H 18 10/21/21 20:59 93 H 96 10/21/21 20:54 102 H 153/91 H 97 10/21/21 20:49 102 H 97 10/21/21 20:44 93 H 96 10/21/21 20:43 92 H 144/80 H 10/21/21 20:39 96 H 96 10/21/21 20:34 94 H 136/79 96 10/21/21 20:30 16 10/21/21 20:29 98 H 96 10/21/21 20:24 96 H 96 10/21/21 20:23 92 H 133/78 10/21/21 20:19 95 H 96 10/21/21 20:14 95 H 95 10/21/21 20:11 93 H 136/82 10/21/21 20:09 97 H 135/86 96 10/21/21 20:07 95 H 142/91 H 10/21/21 20:05 103 H 147/95 H 10/21/21 20:04 98 H 97 10/21/21 20:03 96 H 156/89 H 10/21/21 20:00 20 10/21/21 19:59 86 161/94 H 97 10/21/21 19:57 90 161/100 H 10/21/21 19:55 91 H 161/98 H 10/21/21 19:54 86 98 10/21/21 19:53 86 169/105 H 10/21/21 19:51 85 161/99 H 10/21/21 19:49 98 H 159/102 H 97 10/21/21 19:47 87 157/97 H 10/21/21 19:45 93 H 156/92 H 10/21/21 19:44 103 H 97 10/21/21 19:43 88 155/96 H 10/21/21 19:41 83 159/97 H 10/21/21 19:39 89 157/98 H 97 10/21/21 19:37 96 H 164/96 H 10/21/21 19:35 96 H 154/97 H 10/21/21 19:34 89 97 10/21/21 19:30 94 H 18 169/100 H 10/21/21 19:29 90 97 10/21/21 19:24 90 97 10/21/21 19:19 82 97 10/21/21 19:14 97 H 97 10/21/21 19:13 93 H 157/105 H 10/21/21 19:09 99 H 97 10/21/21 19:04 92 H 97 10/21/21 19:01 37.2 C 18 10/21/21 19:00 96 H 159/92 H 10/21/21 18:59 96 H 98 10/21/21 18:54 84 96 10/21/21 18:49 89 96 10/21/21 18:44 85 148/85 H 96 10/21/21 18:39 93 H 97 10/21/21 18:34 88 96 10/21/21 18:30 91 H 148/90 H 10/21/21 18:29 84 96 10/21/21 18:24 89 96 10/21/21 18:19 82 96 10/21/21 18:14 85 95 10/21/21 18:13 85 144/82 H 10/21/21 18:09 82 96 10/21/21 18:04 85 96 10/21/21 17:59 80 18 141/79 H 97 10/21/21 17:54 86 97 10/21/21 17:49 95 H 97 10/21/21 17:44 86 150/85 H 96 10/21/21 17:39 77 96 10/21/21 17:34 93 H 97 10/21/21 17:29 80 158/89 H 97 10/21/21 17:24 95 H 97 10/21/21 17:19 81 95 10/21/21 17:14 80 96 10/21/21 17:13 83 156/88 H 10/21/21 17:09 86 95 10/21/21 17:08 81 158/86 H 10/21/21 17:04 89 96 10/21/21 17:03 78 151/83 H 10/21/21 16:59 93 H 97 10/21/21 16:58 89 158/90 H 10/21/21 16:54 96 H 97 10/21/21 16:52 88 156/89 H 10/21/21 16:50 36.8 C 91 H 20 157/91 H 10/21/21 16:49 94 H 97 10/21/21 16:48 93 H 166/97 H 10/21/21 16:46 96 H 161/93 H 10/21/21 16:45 100 H 178/95 H 10/21/21 16:44 100 H 99 10/21/21 16:39 100 H 98 10/21/21 16:34 103 H 98 10/21/21 16:29 94 H 96 10/21/21 15:36 85 154/88 H 10/21/21 15:04 89 147/96 H 10/21/21 14:54 37.0 C 96 H 20 156/95 H 10/21/21 14:21 94 H 157/94 H Pain Intensity Lower Abdomen: Pain Intensity: 4 Transfer of Care Handoff Completed per policy Notes Mental Status: alert / awake / arousable Patient Amnestic to Procedure: Yes Nausea / Vomiting: adequately controlled Pain: adequately controlled Airway Patency, RR, SpO2: stable & adequate BP & HR: stable & adequate Hydration State: stable & adequate Neuraxial Anesthesia: was administered and sensory block is resolving Anesthetic Complications: no major complications apparent
[2021-10-22] MEDS: OXYTOCIN 20 UNITS in LACTATED RINGER'S 1,000 ML IV SCH ×2 (14:50→22:58)
[2021-10-22] MEDS ORDERED: Nursing to Pharmacy Communication SCH (16:00)
--- NOTE | 2021-10-22 17:19 | Operative Report (OR) ---
DATE OF SURGERY: 10/22/2021. This is a postop dictation. INDICATION FOR SURGERY: This is a G1, P0, due date 10/17/2021 who presented to labor and delivery on 10/19/2021 for induction of labor for postdates. The patient received cervical Cytotec and Pitocin and had arrest of labor at 4:00 a.m. on 10/22/2021. The patient remained 8 cm for 4 hours with no ch tiana in cervical dilation as well as station. Decision was therefore made to perform sectio n. PREOPERATIVE DIAGNOSES: 1. at term. 2. Failed induction of labor. 3. Macrosomia. 4. Arrest of labor. POSTOPERATIVE DIAGNOSES: 1. at term. 2. Failed induction of labor. 3. Macrosomia. 4. Arrest of labor. SURGEON: Spencer Aguillon MD. INTERMEDIATE DESIGNER: Henry Bullard MD. OPERATION: Primary section for arrest of labor. ANESTHESIA: Epidural. DRAINS: Pablo catheter. ESTIMATED BLOOD LOSS: 600 mL INTRAVENOUS FLUIDS: 1500 mL. URINE OUTPUT: 500 mL of clear urine at the end of the procedure. SPECIMEN: Placenta. INTRAOPERATIVE COMPLICATIONS: None. PATIENT CONDITION: Stable. DISPOSITION: Post-anesthesia care unit. FINDINGS: Live infant in occiput anterior presentation. Weight and Apgars in the pediatric record. Uterus, tubes, adnexa as well as abdominal structures appeared grossly normal. DESCRIPTION OF PROCEDURE: The patient was taken to the operating room where she was prepped and drap ed in normal sterile fashion. Timeout was called. A Pfannenstiel incision was made and carried down to the fascia with a scalpel. Fascia was incised in the midline and extended laterally on both side s. Rectus abdominis muscle was sharply dissected off the fascia. Once inside the abdomen, an Sonny retractor was placed for retraction. A low transverse incision was made in the uterus and extended laterally on both sides. Infant was delivered, mouth was suctioned. Cord was clamped and cut. Infa nt was handed to the waiting pediatric team. Weight and Apgars in the pediatric record. Cord gases and cord blood was obtained. Placenta was manually removed. Uterus was exteriorized and cleared of all clots and debris. Uterus was closed in 2 layers with Vicryl stitch. There was good h emostasis post-closure. Copious amount of irrigation used to irrigate the abdomen. The uterus was r eturned into the abdominal cavity after the uterus was closed as stated above in 2 layers. Inspectio n of the incision site showed good hemostasis. Sonny retractor was removed and peritoneum closed in a running fashion with plain suture. Rectus abdominis muscle was reapproximated with loosely figure -of-eight sutures. Fascia was closed in a running fashion with Vicryl stitch. Subcutaneous space wa s irrigated. Subcutaneous space was closed with plain suture and the skin was closed with laurel. All instruments were removed from the vagina and abdomen and are accounted for x2 including sponges, needles, and retractors. The patient is sent to recovery in stable condition. Job ID: [id number]
[2021-10-22] MEDS: SIMETHICONE 80 MG CHEW PO SCH ×3 (17:37→20:19)
[2021-10-22] MEDS: DOCUSATE SODIUM 100 MG CAP PO SCH (20:19)
[2021-10-23] MEDS: KETOROLAC 30 MG/ML VIAL IV PRN (04:59)
[2021-10-23] MEDS ORDERED: NALBUPHINE HCL INJ 10 MG/ML AMP IV PRN (05:20)
[2021-10-23] MEDS ORDERED: diphenhydrAMINE Capsule 25 MG CAP PO PRN (05:20)
[2021-10-23] MEDS ORDERED: diphenhydrAMINE 50 MG/ML VIAL IV PRN (05:20)
[2021-10-23] MEDS ORDERED: PROMETHAZINE HCL 25 MG in SODIUM CHLORIDE 0.9% 50 ML IV PRN (05:20)
[2021-10-23] MEDS ORDERED: oxyCODONE/ACETAMINOPHEN 5mg/325mg TAB PO PRN (05:20)
[2021-10-23 06:28] LABS: Basophils # (auto) 0.01 K/uL (0-0.2); Basophils % (auto) 0.1 %; Eosinophils # (auto) 0.02 K/uL (0-0.5); Eosinophils % (auto) 0.2 %; Hematocrit (blood only) 28.7 % (37-47); Immature Granulocytes # (auto) 0.02 K/uL (0.00-0.02); Immature Granulocytes % (auto) 0.2 %; Lymphocytes % (auto) 8.8 %; Mean Corpuscular Hemoglobin 31.3 pg (25-34); Mean Corpuscular Hgb Conc 34.8 g/dL (32-36); Mean Corpuscular Volume 89.7 fL (80-100); Mean Platelet Volume 9.8 fL (7.4-10.4); Monocytes # (auto) 0.78 K/uL (0.11-0.59); Monocytes % (auto) 6.9 %; Neutrophils # (auto) 9.48 K/uL (1.4-6.5); Neutrophils % (auto) 83.8 %; Platelet Count 178 K/uL (130-400); RDW Coefficient of Variation 13.3 % (11.5-14.5); RDW Standard Deviation 43.4 fL (36.4-46.3); White Blood Count 11.31 K/uL (4.8-10.8)
[2021-10-23] MEDS: SIMETHICONE 80 MG CHEW PO SCH ×4 (10:03→20:26)
[2021-10-23] MEDS: DOCUSATE SODIUM 100 MG CAP PO SCH ×2 (10:03→20:26)
[2021-10-23] MEDS: PRENATAL VITAMIN 1 TAB PO SCH (10:03)
[2021-10-23] MEDS: FERROUS SULFATE 325 MG TAB PO SCH (10:04)
[2021-10-23] MEDS: IBUPROFEN 600 MG TAB PO PRN ×4 (10:04→21:56)
[2021-10-23] MEDS: LABETALOL HCL 100 MG TAB PO SCH ×2 (10:05→20:26)
--- NOTE | 2021-10-23 11:27 | Obstetrical Progress Note ---
Date of Service October 23, 2021 Assessment & Plan (1) delivery delivered: C/sec day #1 pt doing well distended abdomen. +Bs tolerating PO food and meds continue daty #1 care Results & Data ([facility]) Vital Signs (Past 12 Hours) Vital Signs Temp Pulse Resp BP Pulse Ox 10/23/21 05:15 37.4 C 98 H 18 129/85 98 10/23/21 04:30 16 94 10/23/21 03:22 16 92 10/23/21 02:30 15 92 10/23/21 01:30 16 93 10/23/21 00:30 16 92 10/23/21 00:28 37.2 C 10/22/21 23:30 16 93
[2021-10-23] MEDS ORDERED: bisacodyL 5 MG TABEC PO SCH (20:00)
[2021-10-24 06:11] LABS: Hematocrit (blood only) 26.7 % (37-47)
[2021-10-24] MEDS: IBUPROFEN 600 MG TAB PO PRN (07:58)
[2021-10-24] MEDS: PRENATAL VITAMIN 1 TAB PO SCH (08:19)
[2021-10-24] MEDS: FERROUS SULFATE 325 MG TAB PO SCH (08:19)
[2021-10-24] MEDS: DOCUSATE SODIUM 100 MG CAP PO SCH (08:19)
[2021-10-24 08:32] VITALS: BP 131/82; PULSE 92; TEMP 98.1; O2SAT 95
[2021-10-24] MEDS: LABETALOL HCL 100 MG TAB PO SCH (08:50)
[2021-10-24] MEDS: SIMETHICONE 80 MG CHEW PO SCH (09:20)
--- NOTE | 2021-10-24 10:37 | Obstetrical Progress Note ---
Date of Service October 24, 2021 Assessment & Plan (1) delivery delivered: POD #2 Pt doing well d/c home with instructions Results & Data ([facility]) Vital Signs (Past 12 Hours) Vital Signs Temp Pulse Resp BP Pulse Ox 10/24/21 08:00 36.7 C 92 H 16 131/82 95 10/24/21 00:00 36.5 C 83 18 115/77
[2021-10-24] MEDS ORDERED: bisacodyL 10 MG SUPP PR PRN (11:46)
--- NOTE | 2021-10-24 13:45 | Discharge Summary (DS) ---
DATE OF ADMISSION: 10/20/2021 DATE OF DISCHARGE: 10/24/2021 CHIEF COMPLAINT: at term. HISTORY OF PRESENT ILLNESS: This is a 26-year-old , due date 10/17/2021, presented to labor and delivery on 10/19/2021 for induction of labor. The patient received Cervidil and Cytotec as well as Pitocin and had arrest of labor at 4:00 a.m. on 10/22/2021. The patient was 8 cm for several hours with no change in dilation as well as station. She therefore underwent section on that day and delivered a live . Weight and Apgars in the pediatric record. Postop, the patient met all milestones in recovery. On postop day #1, patient was able to tolerate p.o. food and meds. This wa s advanced on postop day #2 and she has been discharged home in stable condition on this morning. PAST MEDICAL HISTORY: History of anemia and ovarian cyst. PAST SURGICAL HISTORY: Prior history of dental procedure. SOCIAL HISTORY: The patient denies tobacco, drug or alcohol use. FAMILY HISTORY: Noncontributory. ALLERGIES: No known drug allergies. REVIEW OF SYSTEMS: Negative except as dictated under HPI. PHYSICAL EXAMINATION: GENERAL: Well-developed, well-nourished white female in no acute distress. VITAL SIGNS: On 10/24/2021 shows blood pressure of 131/82, pulse of 92, respiration of 16, temperatu re 36.7. HEART: S1 and S2, regular rhythm and rate. LUNGS: Clear to auscultation bilaterally. ABDOMEN: Nontender, nondistended, positive bowel sounds. EXTREMITIES: No cyanosis or clubbing. +1 edema. LABORATORIES: On 10/24/2021 showed hemoglobin of 9, hematocrit of 26.7. OPERATIONS: 1. section for failure to progress. 2. Gestational hypertension, on labetalol. DISCHARGE DIAGNOSES: Postoperative section and gestational hypertension. PLAN ON DISCHARGE: The patient is discharged home with instructions regarding activity, diet, and fo [facility] hospital appointment. Job ID: [id number]
== END 2021-10-24 12:36 | disposition home or self-care (01) | DRG 788 ==
LOC: 4S1 07:34 → 4S2 10-22 15:39